=== PATIENT | female | born 1980 | race Caucasian/White ===

== ENCOUNTER 2025-07-26 13:20 | Outpatient (CLI) | payer MEDICAID, SELFPAY ==
--- NOTE | 2025-07-26 13:29 | MM_ITS ---
WS: [id number] BILATERAL 3D TOMOSYNTHESIS DIGITAL DIAGNOSTIC MAMMOGRAPHY WITH CAD CLINICAL INFORMATION: MASS OF UPPER OUTER QUADRANT OF R BREAST HISTORY: Palpable lumps RIGHT breast COMPARISON: Baseline TECHNIQUE: Bilateral CC, MLO, and ML views. FINDINGS: The breasts are composed of extremely dense tissue, which can limit the detection of small underlying mass lesions. Bilateral breast implants appear intact. A few benign calcifications. Ultrasound is pending of the area of palpable concern ULTRASOUND BREAST RIGHT TECHNIQUE: Ultrasound right breast focused area of concern. CLINICAL INFORMATION: MASS OF UPPER OUTER QUADRANT OF R BREAST FINDINGS: Ultrasound RIGHT breast upper outer quadrant in the area of concern. A few small lying cyst are visualized. Dense parenchymal tissue. No suspicious findings. MM/MM diag BI tomosynthesis [id number] IMPRESSION: DENSITY: The breasts are extremely dense, which lowers the sensitivity of mammo graphy. BI-RADS: 2 - Benign FOLLOW UP: 1 Year Follow-up Recommend return to annual screening mammography.
== END 2025-07-26 13:21 | disposition home or self-care (01) ==
LOC: RAD 13:22
PROVIDERS: PCP Nurse Practitioner Family; Visit Provider Nurse Practitioner Family
DX: N63.11 Unspecified lump in the right breast, upper outer quadrant (principal); N64.89 Other specified disorders of breast; R92.343 Mammographic extreme density, bilateral breasts; Z98.82 Breast implant status; R92.1 Mammographic calcification found on diagnostic imaging of breast
CPT/HCPCS: 76642; 77062; G0279